=== PATIENT | female | born 1965 | race Caucasian/White ===

== ENCOUNTER 2023-12-26 08:52 | Emergency (ER) | payer OTHER ==
[~2023-12-26] VITALS: Ht 162.5 cm; Wt 65.8 kg
[2023-12-26] MEDS ORDERED: VRAYLAR6 MG PO (09:04)
[2023-12-26] MEDS ORDERED: AMOX-CLAV 875-1 EACH PO (09:08)
[2023-12-26] MEDS ORDERED: MELOXICAM15 MG PO (09:08)
[2023-12-26] MEDS ORDERED: Amoxicillin/Clavulanate Pota 875 MG TAB PO ONE (09:10)
== END 2023-12-26 09:14 | disposition home or self-care (01) ==
LOC: ED 08:52
DX: K04.7 Periapical abscess without sinus (principal); R22.0 Localized swelling, mass and lump, head